=== PATIENT | male | born 1995 | race Asian ===

== ENCOUNTER → 2022-12-11 14:14 | Outpatient (BNVA) | payer OTHER, SELFPAY | PROVIDERS: PCP Physician Assistant; Visit Provider Internal Medicine Endocrinology, Diabetes & Metabolism | DX: E11.65 Type 2 diabetes mellitus with hyperglycemia (principal); Z79.4 Long term (current) use of insulin | CPT/HCPCS: 82947 ==

== ENCOUNTER 2023-07-21 08:57 | Outpatient (AMB) | payer OTHER, SELFPAY ==
--- NOTE | 2023-07-21 08:57 | MHC.OFFVIS ---
Intake Vital Signs 07/21/23 08:58 Height 5 ft 8 in Weight 263 lb 10.766 oz BMI 40.1 BP 154/100 H Blood Pressure Location Lt brachial Position Sitting Pulse 70 Pulse Source Pulse Oximeter Intake Visit Reasons: DM Intake Note: Patient presents today to follow up on Type 2 Diabetes Mellitus. Patient receives DME supplies through: Last Diabetic Eye exam: 06/21/2023 Last Podiatry Visit: None Random Glucose: 217mg/dl HgA1C: 10.9% Assistant Import Manager Required: No Accompanied by: Self / Same As Patient Allergies azithromycin [From Zithromax] Allergy (Unknown, Verified 07/21/23 09:03) Unknown cefaclor [From Ceclor] Allergy (Unknown, Verified 07/21/23 09:03) Rash cefprozil [From Cefzil] Allergy (Unknown, Verified 07/21/23 09:03) Hives enviormental Allergy (Unknown, Uncoded 12/11/22 14:20) Unknown HPI HPI Comments History of Present Illness Details 28 YO M who is seen in consultation for T2DM at the request of PCP. Patient had episode of pancreatitis due to elevated triglycerides Initially diagnosed with T2DM in 2019 . Was initially started on treatment with metformin . Current regimen Lantus 60 units Humalog 10-25 units premeals on a scale . 81-150 15 unis 151-200 20 units Per the CGM Jesi CGMS is active 71 % of time . GMi is 8.5 Avg glucose is 218 . The patient's blood sugars were in target 8% of the time, above target 71% of the time, and below target 0% of the time. Pattern shows persistent elevated glucoses overnight but spikes in blood sugar after lunch and after dinner with a greater degree and spike after dinner Not Reports low sugars . Family history of T2DM in pt adopted . Has eyes checked yearly, last eye exam 06/21/2023, denies retinopathy. Denies neuropathy, l not sees podiatry. Denies nephropathy,on GARRET/ARB. Has high trig , on fibrate . . Denies CAD. Had diabetes education in distant past . [facility] Medical History (Updated 12/11/22 @ 14:28 by Demond Maharaj MD) Uncontrolled diabetes mellitus with hyperglycemia, with long-term current use of insulin Surgical History Hx of wisdom tooth extraction Hx of tonsillectomy Family History Mother No problems noted. Father Unknown family medical history Other Adopted Social History Alcohol intake: current Alcohol intake frequency: does not drink Patient Tobacco Use Status: Never used Tobacco Physical Exam Vital Signs: Last Vital Signs Pulse 70 07/21/23 08:58 BP 154/100 H 07/21/23 08:58 BMI result Body Mass Index 40.1 Absence of Cushingoid features. Absence of acromegalic features. Neck exam reveals nl size thyroid about 15 gms. No thyroid nodules palpable. No carotid bruits present. Lungs CTA. Heart S1 S2, Reg R/R. No M/R/ G. Skin exam reveals absence of vitiligo or acanthosis nigricans. Abdominal exam reveals Soft NT/ND with NA BS. No organomegaly present. Neck Other: . Extrem Other: Visual exam of foot performed. No ulcerations or open lesions. No onchomycosis, no callouses.Pulses 2 + distally Sensation intact to monofilament exam. Vibratory sensation sensed is intact with 128 Hz tuning fork Results AMB Hemoglobin A1c AMB Hemoglobin A1c 10.9 % Last Edit by Isabella Rizo on 07/21/23 09:33 Results Reviewed Results Reviewed: 07/21/23 09:11 Glucose, Whole Blood Routine Laboratory Last Values Glucose (Clinic) 217 mg/dL (60-115) H 07/21/23 09:11 Hgb A1c (Clinic) 10.9 % (4.0-6.0) H 07/21/23 09:15 Assessment & Plan Assessment & Plan (1) Uncontrolled diabetes mellitus with hyperglycemia, with long-term current use of insulin: Code(s): E11.65 - Type 2 diabetes mellitus with hyperglycemia; Z79.4 - residential (current) use of insulin Plan: This 28-year-old white male with a history of pancreatitis to elevated triglycerides and diabetes 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 He is currently being treated with basal-bolus insulin with poor glycemic control and no known microvascular or macrovascular complications. Plan is increase Lantus 70 units and increase the Humalog. by 5 units prior to lunch and dinner Could consider use of an insulin pump in this case as G LP 1 and SGLT 2 inhibitor are relatively contraindicated with a history of pancreatitis and DKA. 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
[2023-07-21 08:58] VITALS: BP 154/100; PULSE 70; BMI 40.1
[2023-07-21 09:16] LABS: Glucose, Whole Blood 217 mg/dL (60-115)
== END 2023-07-21 09:24 | disposition home or self-care (01) ==
PROVIDERS: PCP Physician Assistant; Visit Provider Internal Medicine Endocrinology, Diabetes & Metabolism
DX: E11.65 Type 2 diabetes mellitus with hyperglycemia (principal); Z79.4 Long term (current) use of insulin
CPT/HCPCS: 99214

== ENCOUNTER → 2023-07-21 08:57 | Outpatient (BNVA) | payer OTHER, SELFPAY | PROVIDERS: PCP Physician Assistant; Visit Provider Internal Medicine Endocrinology, Diabetes & Metabolism | DX: E11.65 Type 2 diabetes mellitus with hyperglycemia (principal); Z79.4 Long term (current) use of insulin | CPT/HCPCS: 82947; 83036 ==

== ENCOUNTER 2024-04-18 11:11 | Outpatient (AMB) | payer OTHER, SELFPAY ==
[2024-04-18 11:24] VITALS: BP 160/100; PULSE 99; BMI 41.2
--- NOTE | 2024-04-18 11:24 | A.OFFVIS_ITS ---
Vital Signs 04/18/24 11:24 Height 5 ft 8 in Weight 270 lb 11.642 oz BMI 41.2 BP 160/100 H Blood Pressure Location Lt brachial Position Sitting Pulse 99 Pulse Source Pulse Oximeter Intake Visit Reasons: f/u Type 2DM-lvm Intake Note: Patient present today to follow up on Type 2 Diabetes Mellitus. Last Diabetic Eye exam: 11/2023 Last Podiatry Visit: Doesn't have one Random Glucose: 136 mg/dl HgA1C: 12.5% Mule Developer Required: No Accompanied by: Self / Same As Patient Allergies azithromycin [From Zithromax] Allergy (Unknown, Verified 04/18/24 11:29) Unknown cefaclor [From Ceclor] Allergy (Unknown, Verified 04/18/24 11:29) Rash cefprozil [From Cefzil] Allergy (Unknown, Verified 04/18/24 11:29) Hives enviormental Allergy (Unknown, Uncoded 04/18/24 11:29) Unknown HPI Comments Details: 28 YO M who is seen in consultation for T2DM at the request of PCP. Patient had episode of pancreatitis due to elevated triglycerides Initially diagnosed with T2DM in 2019 . Was initially started on treatment with metformin . Current regimen Lantus 70 units Humalog 15-30 units premeals on a scale . 81-150 20 unis 151-200 25 units Per the CGM -could not download mauricio but average of 280, 2 % in range and 32% high and 66% very hyperglycmic Not Reports low sugars . Family history of T2DM in pt adopted . Has eyes checked yearly, last eye exam 11/2023 , denies retinopathy. Denies neuropathy, l not sees podiatry. Denies nephropathy,on GARRET/ARB. Has high trig , on fibrate . . Denies CAD. Had diabetes education in distant past . [facility] Medical History (Updated 12/11/22 @ 14:28 by Demond Maharaj MD) Uncontrolled diabetes mellitus with hyperglycemia, with long-term current use of insulin Surgical History Hx of wisdom tooth extraction Hx of tonsillectomy Family History Mother No problems noted. Father Unknown family medical history Other Adopted Social History Alcohol intake: current Alcohol intake frequency: does not drink Patient Tobacco Use Status: Never used Tobacco Physical Exam Vital Signs: Last Vital Signs Pulse 99 04/18/24 11:24 BP 160/100 H 04/18/24 11:24 BMI result Body Mass Index 41.2 Absence of Cushingoid features. Absence of acromegalic features. Neck exam reveals nl size thyroid about 15 gms. No thyroid nodules palpable. No carotid bruits present. Lungs CTA. Heart S1 S2, Reg R/R. No M/R/ G. Skin exam reveals absence of vitiligo or acanthosis nigricans. Abdominal exam reveals Soft NT/ND with NA BS. No organomegaly present. Neck Other: . Extrem Other: Visual exam of foot performed. No ulcerations or open lesions. No onchomycosis, no callouses.Pulses 2 + distally Sensation intact to monofilament exam. Vibratory sensation sensed is intact with 128 Hz tuning fork Results AMB Hemoglobin A1c AMB Hemoglobin A1c 12.5 % Last Edit by BECKI Martin on 04/18/24 11:40 Results Reviewed Results Reviewed: Laboratory Last Values Glucose (Clinic) 136 mg/dL (60-115) H 04/18/24 11:30 Assessment & Plan Assessment & Plan (1) Uncontrolled diabetes mellitus with hyperglycemia, with long-term current use of insulin: Code(s): E11.65 - Type 2 diabetes mellitus with hyperglycemia; Z79.4 - intermediate card tender (current) use of insulin Category: Medical Plan: This 28-year-old white male with a history of pancreatitis to elevated triglycerides and diabetes 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 He is currently being treated with basal-bolus insulin with poor glycemic control and no known microvascular or macrovascular complications. Plan is increase Lantus 80 units and increase the Humalog. by 5 units prior to lunch and dinner Could consider use of an insulin pump in this case as G LP 1 and SGLT 2 inhibitor are relatively contraindicated with a history of pancreatitis and DKA. We talked about potentially using a tandem pump which may have a larger reservoir and possibly could use U-500 insulin in the future either by injection or via pump. Needs to Make appointments for patient to see the extension educator and engineering specialist. We will also check lipid profile microalbumin to creatinine ratio Orders: Orders Microalbumin, Random (w Creat) Today E11.65 - Type 2 diabetes mellitus with hyperglycemia, Z79.4 - intermediate card tender (current) use of insulin Lipid Panel Today E11.65 - Type 2 diabetes mellitus with hyperglycemia, Z79.4 - intermediate card tender (current) use of insulin AMB Hemoglobin A1c Today E11.65 - Type 2 diabetes mellitus with hyperglycemia, Z13.9 - Encounter for screening, unspecified, Z79.4 - intermediate card tender (current) use of insulin Referrals Diabetes Education Referral E11.65 - Type 2 diabetes mellitus with hyperglycemia, Z79.4 - detention (current) use of insulin Nutrition/Dietitian Referral E11.65 - Type 2 diabetes mellitus with hyperglycemia, Z79.4 - intermediate card tender (current) use of insulin Coding Level of Care Code Est Pt Level 4 (62247) Diagnoses Uncontrolled diabetes mellitus with hyperglycemia, with long-term current use of insulin E11.65; Z79.4
[2024-04-18 11:34] LABS: Glucose, Whole Blood 136 mg/dL (60-115)
== END 2024-04-18 11:54 | disposition home or self-care (01) ==
PROVIDERS: PCP Physician Assistant; Visit Provider Internal Medicine Endocrinology, Diabetes & Metabolism
DX: Z13.9 Encounter for screening, unspecified (principal); E11.65 Type 2 diabetes mellitus with hyperglycemia; Z79.4 Long term (current) use of insulin
CPT/HCPCS: 99214

== ENCOUNTER → 2024-04-18 11:11 | Outpatient (BNVA) | payer OTHER, SELFPAY | PROVIDERS: PCP Physician Assistant; Visit Provider Internal Medicine Endocrinology, Diabetes & Metabolism | DX: E11.65 Type 2 diabetes mellitus with hyperglycemia (principal); Z79.4 Long term (current) use of insulin | CPT/HCPCS: 82947; 83036 ==

== ENCOUNTER 2024-05-02 08:19 | Outpatient (AMB) | payer OTHER, SELFPAY ==
--- NOTE | 2024-05-02 09:12 | A.OFFVIS_ITS ---
Intake Intake Visit Reasons: T2DM Boarding Specialist Required: No Accompanied by: Self / Same As Patient Allergies azithromycin [From Zithromax] Allergy (Unknown, Verified 04/18/24 11:29) Unknown cefaclor [From Ceclor] Allergy (Unknown, Verified 04/18/24 11:29) Rash cefprozil [From Cefzil] Allergy (Unknown, Verified 04/18/24 11:29) Hives enviormental Allergy (Unknown, Uncoded 04/18/24 11:29) Unknown HPI Comprehensive Diabetes Asmnt Most Recent Diabetes Results: No Data to Display [facility] Medical History (Updated 12/11/22 @ 14:28 by Demond Maharaj MD) Uncontrolled diabetes mellitus with hyperglycemia, with long-term current use of insulin Surgical History Hx of wisdom tooth extraction Hx of tonsillectomy Family History Mother No problems noted. Father Unknown family medical history Other Adopted Social History Alcohol intake: current Alcohol intake frequency: does not drink Patient Tobacco Use Status: Never used Tobacco Assessment & Plan Assessment & Plan (1) Uncontrolled diabetes mellitus with hyperglycemia, with long-term current use of insulin: Code(s): E11.65 - Type 2 diabetes mellitus with hyperglycemia; Z79.4 - halfway (current) use of insulin Plan: Pump Assessment: Type of DM: Type 2 Dx at age: [age] years old Previous DKA: Yes Current Insulin Rx: MDI Patient takes insulin as prescribed: Yes Patient? checks BG patient uses Jesi 3, patient has not have an active sensor for over wee Patient? reports glycemic control as: Poor Most recent Hgb A1C: 12.5% Frequency of low BG: Rarely Low BG treatment: Fruit juice Frequency of high BG: Daily Does patient check Ketones? Patient reports he has ketone strips at home, but he does not generally test for ketones. Reviewed with patient the rules want to test for ketones. Asked patient to check to make sure his ketone strips have not Has pt been on a pump in the past? No Reviewed insulin pump basics today with Patient. Explained pros and cons of insulin pumps. Showed pt various pumps, infusion sets, and cgms currently available. Reviewed need to wear pump 24/ and need to change infusion set every 3 days. Also stressed importance of frequent BG checks, 4x daily minimum or use pump that is integrated with CGM.? TDD: 120 units Calculated insulin to carb ratio of 1-4 Correction factor 1-12 Patient's current target rate 150 mg/dL Bolus calc elsa downloaded on patient's phone, demonstrated with elsa how to calculate correction doses and mealtime doses Patient demonstrated motivation for continued insulin pump education and understands the need to complete education prior to starting insulin pump for best outcome. Will follow up for continued education. Next visit will include review of Advanced Carb Counting. Portions of this note were created using voice recognition software, please excuse any words or phrases that may have been misinterpreted. Patient Instructions: DIABETES PROBLEMS HOMECARE INSTRUCTIONS? for High Blood Sugar and When to Test for Ketones Hyperglycemia is the technical term for high blood glucose (blood sugar). High blood sugar happens when the body has too little insulin or when the body can't use insulin properly. What causes hyperglycemia? A number of things can cause hyperglycemia: * If you have type 1, you may not have given yourself enough insulin. ? If you have type 2, your body may have enough insulin, but it is not as effective as it should be. * You ate more than planned or exercised less than planned. * You have stress from an illness, such as a cold or flu. * You have other stress, such as family conflicts or school or dating problems. How to lower your blood sugar level. ? Take medications as directed by physician. ? Drink extra water or noncaffeinated, nonsugared drinks to prevented hydration. ? Exercise if you are not sick However, if your blood sugar is above 250 mg/dl, check your urine for ketones. If you have ketones, do not exercise Exercising when ketones are present may make your blood sugar level go even higher. You'll need to work with your doctor to find the safest way for you to lower your blood sugar level. Regularly check blood sugar or urine for sugar and acetone during illness. Diabetic ketoacidosis (DKA) Is serious condition that can lead to diabetic coma (passing out for a long time) or even . When your cells don't get the glucose they need for energy, your body begins to burn fat for energy, which produces ketones. Ketones are chemicals that the body creates when it breaks down fat to use for energy. The body does this when it doesn?t have enough insulin to use glucose, the body?s normal source of energy. When ketones build up in the blood, they make it more acidic. They are a warning sign that your diabetes is out of control or that you are getting sick. Symptoms of Diabetic Ketoacidosis (DKA) ? DKA usually develops slowly. But when vomiting occurs, this life- threatening condition can develop in a few hours. Early symptoms include the following: ? Thirst or a very dry mouth ? Frequent urination ? High blood glucose (blood sugar) levels ? High levels of ketones in the urine ? Then, other symptoms appear: ? Constantly feeling tired ? Dry or flushed skin ? Nausea, vomiting, or abdominal pain ? (Vomiting can be caused by many illnesses, not just ketoacidosis. If vomiting continues for more than 2 hours, contact your health care provider.) ? Difficulty breathing ? Fruity odor on breath ? A hard time paying attention, or confusion When should you test for ketones? It is advisable to check for ketones under the following conditions when: Your blood glucose is higher than 250mg/dl. Feeling nauseated, throwing up, or have pains in your abdominal region. Have a cold or flu. Have general body fatigue. Feel thirsty or have a very dry mouth. Have flushed skin. Have a fruity breath or a hard time breathing. You feel perplexed or in fog. How to Test Urine for Ketones You can detect ketones with a simple urine test using a test strip, similar to a blood testing strip. Ask your health care provider when and how you should test for ketones. Many experts advise to check your urine for ketones when your blood glucose is more than 250 mg/dl. When you are ill (when you have a cold or the flu, for example), check for ketones every 4 to 6 hours. And check every 4 to 6 hours when your blood sugar is more than 250 mg/dl. Also, check for ketones when you have any symptoms of DKA. How to lower your blood sugar level. ? Take medications as directed by physician. ? Drink extra water or noncaffeinated, nonsugared drinks to prevented hydration. ? Exercise if you are not sick However, if your blood sugar is above 250 mg/dl, check your urine for ketones. If you have ketones, do not exercise Exercising when ketones are present may make your blood sugar level go even higher. You'll need to work with your doctor to find the safest way for you to lower your blood sugar level. Regularly check blood sugar or urine for sugar and acetone during illness Coding Level of Care Code Est Pt Level 1 (51897) Diagnoses Uncontrolled diabetes mellitus with hyperglycemia, with long-term current use of insulin E11.65; Z79.4
== END 2024-05-02 09:15 | disposition home or self-care (01) ==
PROVIDERS: PCP Physician Assistant; Visit Provider Registered Nurse Diabetes Educator
DX: E11.65 Type 2 diabetes mellitus with hyperglycemia (principal); Z79.4 Long term (current) use of insulin

== ENCOUNTER → 2024-05-02 08:19 | Outpatient (BNVA) | payer OTHER, SELFPAY | PROVIDERS: PCP Physician Assistant; Visit Provider Registered Nurse Diabetes Educator | DX: E11.65 Type 2 diabetes mellitus with hyperglycemia (principal); Z79.4 Long term (current) use of insulin | CPT/HCPCS: 99211 ==

== ENCOUNTER 2024-06-29 07:55 | Outpatient (AMB) | payer OTHER, SELFPAY ==
--- NOTE | 2024-06-29 08:37 | MHC.AMDMED ---
Intake Intake Visit Reasons: 60 Carb Counting Dimensional Engineer Required: No Accompanied by: Mother Allergies azithromycin [From Zithromax] Allergy (Unknown, Verified 04/18/24 11:29) Unknown cefaclor [From Ceclor] Allergy (Unknown, Verified 04/18/24 11:29) Rash cefprozil [From Cefzil] Allergy (Unknown, Verified 04/18/24 11:29) Hives enviormental Allergy (Unknown, Uncoded 04/18/24 11:29) Unknown HPI Comprehensive Diabetes Asmnt Most Recent Diabetes Results: No Data to Display [facility] Medical History (Updated 12/11/22 @ 14:28 by Demond Maharaj MD) Uncontrolled diabetes mellitus with hyperglycemia, with long-term current use of insulin Surgical History Hx of wisdom tooth extraction Hx of tonsillectomy Family History Mother No problems noted. Father Unknown family medical history Other Adopted Social History Alcohol intake: current Alcohol intake frequency: does not drink Patient Tobacco Use Status: Never used Tobacco Assessment & Plan Assessment & Plan (1) Uncontrolled diabetes mellitus with hyperglycemia, with long-term current use of insulin: Code(s): E11.65 - Type 2 diabetes mellitus with hyperglycemia; Z79.4 - intermediate school teacher (current) use of insulin Plan: Carb Counting Basic Patient presents for appointment carbohydrate counting education. Reviewed the basic principles of carbohydrate counting.? Insulin to carb ratio, and insulin sensitivity factor calculated based on rule of 450 for insulin to carb ratio, and rule of 1500 for insulin sensitivity factor. Instructed patient on the importance of accurate calculation of the amount of carbs per meal for optimal glucose control Reviewed how to calculate mealtime bolus with insulin to carb ratio Reviewed how to calculate correction dose with insulin sensitivity factor Patient's TDD estimate 120 units Insulin to Carbohydrate ratio: Changed to 1-3 Correction factor: Changed to 1-10 Diet Recall: Breakfast:skips Lunch: sub sandwich Dinner: carb, protion, and vegtables Snacks: Pretzels, chips Patient given healthy plate handout, for resource for carbohydrate counting Encourage patient to fill out food logs, estimating carbohydrates at meals, noting glucose number prior to meal, and how many units of insulin taken prior to meals Pt able to calculated needed insulin based on estimated carbohydrate content Instructed patient that there may need to be adjustment to insulin to carb ratio and sensitivity factor based on blood glucose trends. Reviewed patient's Jesi data Patient's average glucose for the past 2 weeks 252 mg/dL Patient above target 89% At target 11% Below target 0% Programmed bolus calc elsa with new ratio Suggested patient increase Toujeo from 60 units daily to 70 units daily Portions of this note were created using voice recognition software, please excuse any words or phrases that may have been misinterpreted. Patient Instructions: Patient will contact ski lift mechanic when he receives T slim insulin pump and Dexcom G7 sensors Coding Level of Care Code Est Pt Level 1 (33311) Diagnoses Uncontrolled diabetes mellitus with hyperglycemia, with long-term current use of insulin E11.65; Z79.4
== END 2024-06-29 08:45 | disposition home or self-care (01) ==
PROVIDERS: PCP Physician Assistant; Visit Provider Registered Nurse Diabetes Educator
DX: E11.65 Type 2 diabetes mellitus with hyperglycemia (principal); Z79.4 Long term (current) use of insulin

== ENCOUNTER → 2024-06-29 07:55 | Outpatient (BNVA) | payer OTHER, SELFPAY | PROVIDERS: PCP Physician Assistant; Visit Provider Registered Nurse Diabetes Educator | DX: E11.65 Type 2 diabetes mellitus with hyperglycemia (principal); Z79.4 Long term (current) use of insulin | CPT/HCPCS: 99211 ==

== ENCOUNTER 2024-08-15 09:50 | Outpatient (AMB) | payer OTHER, SELFPAY ==
--- NOTE | 2024-08-15 09:54 | MHC.OFFVIS ---
Vital Signs 08/15/24 09:55 Height 5 ft 8 in Weight 273 lb 5.971 oz BMI 41.6 BP 144/82 H Blood Pressure Location Lt brachial Position Sitting Pulse 87 Pulse Source Pulse Oximeter Intake Visit Reasons: [id number] Intake Note: Patient presents today for D2MT follow up visit. 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 Accompanied by: Self / Same As Patient Allergies azithromycin [From Zithromax] Allergy (Unknown, Verified 08/15/24 10:01) Unknown cefaclor [From Ceclor] Allergy (Unknown, Verified 08/15/24 10:01) Rash cefprozil [From Cefzil] Allergy (Unknown, Verified 08/15/24 10:01) Hives enviormental Allergy (Unknown, Uncoded 08/15/24 10:01) Unknown Medication List - Last Reconciled 08/15/24 by Demond Maharaj MD blood-glucose sensor (FiPath Jesi 3 Sensor device) As directed fenofibrate nanocrystallized 145 mg PO DAILY insulin lispro (Humalog KwikPen U-200 Insulin) 10 - 25 units (0.05 - 0.125 mL) subcut TID lisinopril 40 mg PO DAILY losartan 50 mg PO DAILY pen needle, diabetic (BD Sandra 2nd Gen Pen Needle) As directed injects 1 X/day Toujeo Max U-300 SoloStar (insulin glargine U-300 conc) 80 units (0.2667 mL) subcut DAILY NS HPI Comments Details: 29 YO M who is seen in consultation for T2DM at the request of PCP. Patient had episode of pancreatitis due to elevated triglycerides Initially diagnosed with T2DM in 2019 . Was initially started on treatment with metformin . Current regimen Toujeo 80 units Humalog 10-25 units premeals on a scale . 81-150 20 unis 151-200 25 units Per the CGM -Jesi download shows he is using the sensor 73% of the time. Average glucose is 175 with G mi of 7.5% and variability 28.3%. 60% range with 34% hyperglycemia and 6% very hyperglycemic and no hypoglycemia. Patent shows declining blood sugars overnight with elevation of blood sugars post meals Reports rare low sugars . Family history of T2DM in pt adopted . Has eyes checked yearly, last eye exam 07/2024 , denies retinopathy. Denies neuropathy, l not sees podiatry. Denies nephropathy,on GARRET/ARB. Has high trig , on fibrate . . Denies CAD. Had diabetes education in distant past . Recently saw educator is considering going on a insulin pump [facility] Medical History (Updated 12/11/22 @ 14:28 by Demond Maharaj MD) Uncontrolled diabetes mellitus with hyperglycemia, with long-term current use of insulin Surgical History Hx of wisdom tooth extraction Hx of tonsillectomy Family History Mother No problems noted. Father Unknown family medical history Other Adopted Social History Alcohol intake: current Alcohol intake frequency: does not drink Patient Tobacco Use Status: Never used Tobacco Physical Exam Absence of Cushingoid features. Absence of acromegalic features. Neck exam reveals nl size thyroid about 15 gms. No thyroid nodules palpable. No carotid bruits present. Lungs CTA. Heart S1 S2, Reg R/R. No M/R/ G. Skin exam reveals absence of vitiligo or acanthosis nigricans. Abdominal exam reveals Soft NT/ND with NA BS. No organomegaly present. Neck Other: . Extrem Other: Visual exam of foot performed. No ulcerations or open lesions. No onchomycosis, no callouses.Pulses 2 + distally Sensation intact to monofilament exam. 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 He is currently being treated with basal-bolus insulin with fair but improving glycemic control and no known microvascular or macrovascular complications. Plan is increase increase the Humalog. by 5 units prior to lunch and dinner patient should follow-up with the acquisition consultant continue discussing possible use of insulin pump. We will also check lipid profile microalbumin to creatinine ratio told patient goes for these labs Coding Level of Care Code Est Pt Level 4 (12314) Complex EM visit Add On G2211 Diagnoses Uncontrolled diabetes mellitus with hyperglycemia, with long-term current use of insulin E11.65; Z79.4
[2024-08-15 09:55] VITALS: BP 144/82; PULSE 87; BMI 41.6
[2024-08-15 10:09] LABS: Glucose, Whole Blood 95 mg/dL (60-115)
== END 2024-08-15 10:19 | disposition home or self-care (01) ==
PROVIDERS: PCP Physician Assistant; Visit Provider Internal Medicine Endocrinology, Diabetes & Metabolism
DX: Z13.9 Encounter for screening, unspecified (principal); E11.65 Type 2 diabetes mellitus with hyperglycemia; Z79.4 Long term (current) use of insulin
CPT/HCPCS: 99214; G2211

== ENCOUNTER → 2024-08-15 09:50 | Outpatient (BNVA) | payer OTHER, SELFPAY | PROVIDERS: PCP Physician Assistant; Visit Provider Internal Medicine Endocrinology, Diabetes & Metabolism | DX: E11.65 Type 2 diabetes mellitus with hyperglycemia (principal); Z79.4 Long term (current) use of insulin | CPT/HCPCS: 82947; 83036 ==

== ENCOUNTER 2024-11-13 10:53 | Outpatient (AMB) | payer OTHER, SELFPAY ==
--- NOTE | 2024-11-13 10:58 | MHC.OFFVIS ---
Vital Signs 11/13/24 11:01 Height 5 ft 8 in Weight 273 lb 9.498 oz BMI 41.6 BP 166/110 H Blood Pressure Location Lt brachial Position Sitting Pulse 105 H Pulse Source Pulse Oximeter Intake Visit Reasons: T2DM Intake Note: Patient present today to follow up on Type 2 Diabetes Mellitus. Last Diabetic Eye exam: Has yearly exam Last Podiatry Visit: Has not see a Rn New Graduate more than 2 years. 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 Patient had episode of pancreatitis due to elevated triglycerides Initially diagnosed with T2DM in 2019 . Was initially started on treatment with metformin . Current regimen Toujeo 60 units Humalog 10-25 units premeals on a scale . 81-150 20 unis 151-200 25 units . Was out of Humalog for few days Per the CGM -Jesi download shows he is using the sensor 79% of the time. Average glucose is 239with G mi of 9% and variability 26.1%. 21% range with 40% hyperglycemia and 39% very hyperglycemic and no hypoglycemia. Patent shows declining blood sugars overnight with elevation of blood sugars post meals Reports rare low sugars . Family history of T2DM in pt adopted . Has eyes checked yearly, last eye exam 07/2024 , denies retinopathy. Denies neuropathy, l not sees podiatry. Denies nephropathy,on GARRET/ARB. Has high trig , on fibrate . . Denies CAD. Had diabetes education i . Recently saw educator is considering going on a insulin pump T-Slim pump [facility] Medical History (Updated 12/11/22 @ 14:28 by Demond Maharaj MD) Uncontrolled diabetes mellitus with hyperglycemia, with long-term current use of insulin Surgical History Hx of wisdom tooth extraction Hx of tonsillectomy Family History Mother No problems noted. Father Unknown family medical history Other Adopted Social History Alcohol intake: current Alcohol intake frequency: does not drink Patient Tobacco Use Status: Never used Tobacco Physical Exam Vital Signs: BMI result Body Mass Index 41.6 Absence of Cushingoid features. Absence of acromegalic features. Neck exam reveals nl size thyroid about 15 gms. No thyroid nodules palpable. No carotid bruits present. Lungs CTA. Heart S1 S2, Reg R/R. No M/R/ G. Skin exam reveals absence of vitiligo or acanthosis nigricans. Abdominal exam reveals Soft NT/ND with NA BS. No organomegaly present. Neck Other: . Extrem Other: Visual exam of foot performed. No ulcerations or open lesions. No onchomycosis, no callouses.Pulses 2 + distally Sensation intact to monofilament exam. 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 He is currently being treated with basal-bolus insulin with poor deteriorate glycemic control and no known microvascular or macrovascular complications. Plan is increase increase the Humalog. by additional 5 units prior to lunch and dinner patient should follow-up with the special education paraeducator continue discussing possible use of insulin pump. We will also check lipid profile and microalbumin to creatinine ratio told patient goes for these labs. We will have him follow up with Valeria Malloy NP in 3-4 wks Coding Level of Care Code Est Pt Level 4 (56524) Complex EM visit Add On G2211 Diagnoses Uncontrolled diabetes mellitus with hyperglycemia, with long-term current use of insulin E11.65; Z79.4
[2024-11-13 11:01] VITALS: BP 166/110; PULSE 105; BMI 41.6
[2024-11-13 11:11] LABS: Glucose, Whole Blood 209 mg/dL (60-115)
== END 2024-11-13 11:20 | disposition home or self-care (01) ==
PROVIDERS: PCP Physician Assistant; Visit Provider Internal Medicine Endocrinology, Diabetes & Metabolism
DX: E11.65 Type 2 diabetes mellitus with hyperglycemia (principal); Z79.4 Long term (current) use of insulin
CPT/HCPCS: 99214; G2211

== ENCOUNTER → 2024-11-13 10:53 | Outpatient (BNVA) | payer OTHER, SELFPAY | PROVIDERS: PCP Physician Assistant; Visit Provider Internal Medicine Endocrinology, Diabetes & Metabolism | DX: E11.65 Type 2 diabetes mellitus with hyperglycemia (principal); Z79.4 Long term (current) use of insulin | CPT/HCPCS: 82947 ==

== ENCOUNTER 2024-12-19 08:50 | Outpatient (AMB) | payer OTHER, SELFPAY ==
--- NOTE | 2024-12-19 08:03 | MHC.OFFVIS ---
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 Accompanied by: Self / Same As Patient Allergies azithromycin [From Zithromax] Allergy (Unknown, Verified 12/19/24 09:00) Unknown cefaclor [From Ceclor] Allergy (Unknown, Verified 12/19/24 09:00) Rash cefprozil [From Cefzil] Allergy (Unknown, Verified 12/19/24 09:00) Hives enviormental Allergy (Unknown, Uncoded 12/19/24 09:00) Unknown Medication List - Last Reconciled 12/19/24 by Valeria Elena NP blood-glucose sensor (FreeStyle Mauricio 3 Sensor device) As directed fenofibrate nanocrystallized 145 mg PO DAILY insulin lispro (Humalog KwikPen U-200 Insulin) 10 - 25 units (0.05 - 0.125 mL) subcut TID losartan 50 mg PO DAILY pen needle, diabetic (BD Sandra 2nd Gen Pen Needle) As directed injects 1 X/day Toujeo Max U-300 SoloStar (insulin glargine U-300 conc) 80 units (0.2667 mL) subcut DAILY NS HPI Comments Details: 29 YO M who is seen in f/u for T2DM. Patient had episode of pancreatitis due to elevated triglycerides. He was last seen by Dr. Maharaj 6 weeks ago at which time his Humalog was increased by 5 units per dose. Hemoglobin A1c 12/19/2024 %, 08/15/2024 10.1 down from 12.5. C-peptide 1.5 2021 Initially diagnosed with T2DM in 2019 . Was initially started on treatment with metformin . Current regimen Toujeo 60 units Humalog 1:4 carb ratio correction 1:14 using phone elsa (generally follows car ratio/correction factor) 81-150 10 units 151-200 15 units 201-250 20 units over 250 20 units mauricio average glucose: 261 14 day continuous glucose monitor report reviewed Glucose Managment indicator 9.6 % Days with CGM data [ ] % TIme in ranges: Fifty-seven % very high (above 250) 36 % high ?(181-250) 7 % in range ?(70-180] 0 % low (69-55) 0 % ?very low (below 54) 21.8 Standard Deviation Interpretation numbers running throughout the 24 hour. High Interpretation [ ] Reports rare low sugars . Family history of T2DM in pt adopted . Denies retinopathy: Has eyes checked yearly, last eye exam 09/2024 Denies neuropathy, no numbness, tingling, pain or cramping in the lower extremities, does not see podiatry. No nephropathy,on ARB last labs in chart 2021 EGFR 135 no microalbumin Has high trig, on fenofibrate Denies CAD. Has had diabetes educationm. Recently saw educator 2023, considering going on a insulin pump T-Slim pump [facility] Medical History (Updated 12/19/24 @ 11:50 by Valeria Elena NP) Hypertension Uncontrolled diabetes mellitus with hyperglycemia, with long-term current use of insulin Surgical History Hx of wisdom tooth extraction Hx of tonsillectomy Family History Mother No problems noted. Father Unknown family medical history Other Adopted Social History Alcohol intake: current Alcohol intake frequency: does not drink Patient Tobacco Use Status: Never used Tobacco Physical Exam Vital Signs: Last Vital Signs Pulse 86 12/19/24 09:16 BP 180/100 H 12/19/24 09:16 BMI result Body Mass Index 42.2 Const Other: Absence of Cushingoid features. Absence of acromegalic features. Neck exam reveals nl size thyroid about 15 gms. No thyroid nodules palpable. Heart S1 S2, Reg R/R. No M/R G. Skin exam reveals absence of vitiligo or acanthosis nigricans. Visual exam of foot performed. No ulcerations or open lesions. No inter digit maceration or fissuring. No onychomycosis, no callouses. Sensation intact to monofilament exam. Vibratory sensation is normal with 128 Hz tuning fork. good cap refill Results AMB Hemoglobin A1c AMB Hemoglobin A1c 8.7 % Last Edit by BECKI Ramos on 12/19/24 09:13 Results Reviewed Results Reviewed: Laboratory Last Values Glucose (Clinic) 259 mg/dL (60-115) H 12/19/24 09:04 Hgb A1c (Clinic) 8.7 % (4.0-6.0) H 12/19/24 09:06 Assessment & Plan Assessment & Plan (1) Uncontrolled diabetes mellitus with hyperglycemia, with long-term current use of insulin: Code(s): E11.65 - Type 2 diabetes mellitus with hyperglycemia; Z79.4 - manager terminal (current) use of insulin Category: Medical Plan: This 29-year-old white male with a history of pancreatitis due to elevated triglycerides and diabetes 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 He is currently being treated with basal-bolus insulin with poor glycemic control and no known microvascular or macrovascular complications. Increase Toujeo to 64 units change insulin to carb to 1:3 correction factor 1:12 Pre pump appointment with health educator. He is interested in either more be or tandem using the Veritractstyle Mauricio 2+ as Dexcom has too high the co-pay for him. Needs additional pre pump session with health educator and would recommend he also see vocational director. Patient would do better on insulin pump if he had some pre set meals entered. The patient had an opportunity to ask questions regarding treatment plan. The patient expressed understanding and agreement with the above treatment plan. The patient is aware they should contact our office by phone for worsening glucose readings or for any low blood sugars which may warrant a change in diabetes medication. Compliance is encouraged with medications and any followup testing/consults which may have been ordered. (2) Hypertension: Code(s): I10 - Essential (primary) hypertension Category: Medical Plan: takes antihypertensive regularly add hctz and recheck labs in 3 weeks bp check next visit. Orders: Orders AMB Hemoglobin A1c Today E11.65 - Type 2 diabetes mellitus with hyperglycemia, Z79.4 - FDC (current) use of insulin Basic Metabolic Panel Today E11.65 - Type 2 diabetes mellitus with hyperglycemia, Z79.4 - FDC (current) use of insulin Thyroid Stimulating Hormone Today E11.65 - Type 2 diabetes mellitus with hyperglycemia, Z79.4 - manager terminal (current) use of insulin Free T4 (Free Thyroxine) Today E11.65 - Type 2 diabetes mellitus with hyperglycemia, Z79.4 - manager terminal (current) use of insulin Referrals Dry Wall Installer Nutrition Referral E11.65 - Type 2 diabetes mellitus with hyperglycemia, Z79.4 - FDC (current) use of insulin Medications: New hydrochlorothiazide 12.5 mg PO DAILY 30 days 30 tabs 11RF Patient Instructions: Take 15 carb carbohydrate grams to treat a low sugar (3-4 glucose tablets, half a glass of juice or 15 carbohydrate grams of soft candy such as gummie snacks). Recheck your sugar in 15 minutes and re-treat again with 15 carbohydrate grams if low or still with symptoms. Do not drive a car or operate machinery if you do not know what your blood sugar is, if it is low or in excess of 300. The patient was counseled to achieve a target A1C of 7% (154 avg). Fasting blood sugars should be 90-130 in the morning and less than 180 two hours after meals. Reviewed the relationship between poor diabetic control and the development of complications. Check your feet daily looking for any signs of infection, drainage, redness, ulceration and seek medical attention if this occurs. Break in shoes gradually and do not wear open-toed shoes or walk stocking footed or barefooted. Coding Level of Care Code Est Pt Level 4 (48662) Complex EM visit Add On G2211 Diagnoses Uncontrolled diabetes mellitus with hyperglycemia, with long-term current use of insulin E11.65; Z79.4 Hypertension I10 Time Spent (min) 30 Comment Time spent reviewing labs/provider notes, glucose,sensor reports, face to face, chart doc
[2024-12-19 08:57] VITALS: BP 140/100; PULSE 114; BMI 42.2
[2024-12-19 09:07] LABS: Glucose, Whole Blood 259 mg/dL (60-115)
[2024-12-19 09:16] VITALS: BP 180/100; PULSE 86
== END 2024-12-19 09:27 | disposition home or self-care (01) ==
PROVIDERS: PCP Physician Assistant; Visit Provider Nurse Practitioner Adult Health
DX: E11.65 Type 2 diabetes mellitus with hyperglycemia (principal); Z79.4 Long term (current) use of insulin; I10 Essential (primary) hypertension
CPT/HCPCS: 99214; G2211

== ENCOUNTER → 2024-12-19 08:50 | Outpatient (BNVA) | payer OTHER, SELFPAY | PROVIDERS: PCP Physician Assistant; Visit Provider Nurse Practitioner Adult Health | DX: E11.65 Type 2 diabetes mellitus with hyperglycemia (principal); Z79.4 Long term (current) use of insulin | CPT/HCPCS: 82947; 83036 ==

== ENCOUNTER 2024-12-26 07:00 | Outpatient (AMB) | payer OTHER, SELFPAY ==
--- NOTE | 2024-12-26 07:19 | MHC.AMDMED ---
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 Accompanied by: Self / Same As Patient Allergies azithromycin [From Zithromax] Allergy (Unknown, Verified 12/19/24 09:00) Unknown cefaclor [From Ceclor] Allergy (Unknown, Verified 12/19/24 09:00) Rash cefprozil [From Cefzil] Allergy (Unknown, Verified 12/19/24 09:00) Hives enviormental Allergy (Unknown, Uncoded 12/19/24 09:00) Unknown HPI Comprehensive Diabetes Asmnt Most Recent Diabetes Results: No Data to Display [facility] Medical History (Updated 12/19/24 @ 11:50 by Valeria Elena NP) Hypertension Uncontrolled diabetes mellitus with hyperglycemia, with long-term current use of insulin Surgical History Hx of wisdom tooth extraction Hx of tonsillectomy Family History Mother No problems noted. Father Unknown family medical history Other Adopted Social History Alcohol intake: current Alcohol intake frequency: does not drink Patient Tobacco Use Status: Never used Tobacco Assessment & Plan Assessment & Plan (1) Uncontrolled diabetes mellitus with hyperglycemia, with long-term current use of insulin: Code(s): E11.65 - Type 2 diabetes mellitus with hyperglycemia; Z79.4 - alf (current) use of insulin Plan: Personal Continuous Glucose Monitor: Patients CGM information reviewed, Pt uses Jesi 3+ with phone Sensor data: Hypoglycemia: ? 0% Hyperglycemia:? 83% Time in Range:? 17% Average glucose for the last 2 weeks? 237 mg/dL At last visit with BULB TESTER Toujeo was increased from 60 units to 64 units I:CHO was changed to 1:3 CF was changed to 1:12, patient has patient has continue to use old settings and did not increase Toujeo At today's visit patient updated bolus calc elsa with new settings, and agree to increase Toujeo to 64 units Discussed patient the difference between Jesi 2+ and Dexcom G7 Patient is interested in using the Tandem Mobi, he will need to change reservoir every 48 hours as opposed to every 72 hours due to TDD of 100 units Patient able to insert sensor independently at home without issue.? Portions of this note were created using voice recognition software, please excuse any words or phrases that may have been misinterpreted. Patient Instructions: When you receive pump and pump supplies called to set up pump training appt Coding Level of Care Code Est Pt Level 1 (95876) Diagnoses Uncontrolled diabetes mellitus with hyperglycemia, with long-term current use of insulin E11.65; Z79.4
== END 2024-12-26 07:23 | disposition home or self-care (01) ==
PROVIDERS: PCP Physician Assistant; Visit Provider Registered Nurse Diabetes Educator
DX: E11.65 Type 2 diabetes mellitus with hyperglycemia (principal); Z79.4 Long term (current) use of insulin

== ENCOUNTER → 2024-12-26 07:00 | Outpatient (BNVA) | payer OTHER, SELFPAY | PROVIDERS: PCP Physician Assistant; Visit Provider Registered Nurse Diabetes Educator | DX: E11.65 Type 2 diabetes mellitus with hyperglycemia (principal); Z79.4 Long term (current) use of insulin | CPT/HCPCS: 99211 ==

== ENCOUNTER 2025-04-16 07:53 | Outpatient (AMB) | payer OTHER, SELFPAY ==
--- NOTE | 2025-04-16 09:48 | MHC.AMDMED ---
Intake Intake Visit Reasons: Pump Assistive Technology Specialist Required: No Accompanied by: Mother Allergies azithromycin [From Zithromax] Allergy (Unknown, Verified 12/19/24 09:00) Unknown cefaclor [From Ceclor] Allergy (Unknown, Verified 12/19/24 09:00) Rash cefprozil [From Cefzil] Allergy (Unknown, Verified 12/19/24 09:00) Hives enviormental Allergy (Unknown, Uncoded 12/19/24 09:00) Unknown HPI Comprehensive Diabetes Asmnt Most Recent Diabetes Results: No Data to Display [facility] Medical History (Updated 12/19/24 @ 11:50 by Valeria Elena NP) Hypertension Uncontrolled diabetes mellitus with hyperglycemia, with long-term current use of insulin Surgical History Hx of wisdom tooth extraction Hx of tonsillectomy Family History Mother No problems noted. Father Unknown family medical history Other Adopted Social History Alcohol intake: current Alcohol intake frequency: does not drink Patient Tobacco Use Status: Never used Tobacco Assessment & Plan Assessment & Plan (1) Uncontrolled diabetes mellitus with hyperglycemia, with long-term current use of insulin: Code(s): E11.65 - Type 2 diabetes mellitus with hyperglycemia; Z79.4 - equipment operator intermodal yard (current) use of insulin Plan: Patient presents for pump training for T- slim pump and [employer] G7 CGM training today. (Pt will transition to Libre2+) Patient will be using Humalog U 200 in T slim insulin pump, message sent to provider to prescribe Humalog U 200 pens to be delivered via insulin The following topics were reviewed today: -Pump therapy basic concepts: Basal/bolus, insulin to carb ratio, correction factor, insulin on board -Device settings: Bluetooth/mobile connection (if applicable), correct date and time, sound volume -CGM settings(if integrated system): CGM graft views and trend arrows, alerts and alarms, Start new sensor ??? High Alert: 250 mg/dL ??? Low Alert: 70 mg/dL ??? Insulin delivery settings Program insulin to carb ratio, correction factor, target blood glucose, suspend or resume insulin delivery, bolus limit and basal limit settings Instructed patient to only use room temperature insulin, how to load cartridge or fill pod, with insulin. Fill tubing and cannula (if applicable) Inserting infusion set or starting pod Troubleshooting after starting new pod or inserting new insulin set: Occlusion, adhesive tape sensitivity, redness Check BG 2 hours after site change Safety information: Importance of a backup plan, for manual injections, proper prescriptions and emergency supplies ketone strips, and rules for testing for ketones Patient was able to insert insulin set today without difficulty. Patient understands the basic concepts of pump therapy, how to give insulin for meals and snacks, how to troubleshoot for hyper and hypoglycemia. Setting verified by [facility] Basal rate(s) (units/hour) : 12 AM? to 12 AM? 2 units / hr Bolus setting Insulin Carbohydrate Ratio (s) 12 AM to 12 AM? 1:4 Correction Factor / Sensitivity Factor 12 AM to 12 AM? 1:15 Active Insulin Time:? 5 hours Control IQ Target(s): 12 AM to 12 AM? 110 mg/dL Patient will follow up with [facility] as instructed Patient will contact [facility] with questions or concerns, patient given IT number to support in any technical issues related to insulin pump Portions of this note were created using voice recognition software, please excuse any words or phrases that may have been misinterpreted. Coding Level of Care Code Est Pt Level 1 (53716) Diagnoses Uncontrolled diabetes mellitus with hyperglycemia, with long-term current use of insulin E11.65; Z79.4
== END 2025-04-16 09:53 | disposition home or self-care (01) ==
LOC: HO.ENCR 07:54
PROVIDERS: PCP Physician Assistant; Visit Provider Registered Nurse Diabetes Educator
DX: E11.65 Type 2 diabetes mellitus with hyperglycemia (principal); Z79.4 Long term (current) use of insulin

== ENCOUNTER → 2025-04-16 07:53 | Outpatient (BNVA) | payer OTHER, SELFPAY | PROVIDERS: PCP Physician Assistant; Visit Provider Registered Nurse Diabetes Educator | DX: E11.65 Type 2 diabetes mellitus with hyperglycemia (principal); Z79.4 Long term (current) use of insulin; Z96.41 Presence of insulin pump (external) (internal); Z46.81 Encounter for fitting and adjustment of insulin pump | CPT/HCPCS: 99211 ==

== ENCOUNTER 2025-04-24 06:59 | Outpatient (AMB) | payer OTHER, SELFPAY ==
--- NOTE | 2025-04-24 07:02 | A.OFFVIS_ITS ---
Intake Intake Visit Reasons: 60 min Ammunition Specialist Required: No Accompanied by: Self / Same As Patient Allergies azithromycin [From Zithromax] Allergy (Unknown, Verified 12/19/24 09:00) Unknown cefaclor [From Ceclor] Allergy (Unknown, Verified 12/19/24 09:00) Rash cefprozil [From Cefzil] Allergy (Unknown, Verified 12/19/24 09:00) Hives enviormental Allergy (Unknown, Uncoded 12/19/24 09:00) Unknown HPI Comprehensive Diabetes Asmnt Most Recent Diabetes Results: 2 No Data to Display [facility] Medical History (Updated 12/19/24 @ 11:50 by Valeria Elena NP) Hypertension Uncontrolled diabetes mellitus with hyperglycemia, with long-term current use of insulin Surgical History Hx of wisdom tooth extraction Hx of tonsillectomy Family History Mother No problems noted. Father Unknown family medical history Other Adopted Social History Alcohol intake: current Alcohol intake frequency: does not drink Patient Tobacco Use Status: Never used Tobacco Assessment & Plan Assessment & Plan (1) Uncontrolled diabetes mellitus with hyperglycemia, with long-term current use of insulin: Code(s): E11.65 - Type 2 diabetes mellitus with hyperglycemia; Z79.4 - guest experience specialist (current) use of insulin Plan: Patient presents for pump training for T- slim pump and Libre2+ CGM training today. Patient will be using Humalog U 200 in T slim insulin pump The following topics were reviewed today: -extended bolus feature -Sleep Schedule ??? High Alert: 250 mg/dL ??? Low Alert: 70 mg/dL Patient has successfully transitioned from Dexcom G7 to Jesi 2+ sensor with T slim insulin pump Reviewed patient's glucose data, patient is having postprandial hyperglycemia, adjusted insulin to carb ratio at today's visit Set sleep schedule, we reviewed with patient when to use extended bolus feature Patient reports occasional interruption in connectivity since transitioning to Jesi 2+ sensor. Overall patient reports satisfaction with insulin pump. Denies difficulty changing infusion sets. Patient given written off pump insulin plan Instructed patient to only use room temperature insulin, how to load cartridge or fill pod, with insulin. Fill tubing and cannula (if applicable) Troubleshooting after starting new pod or inserting new insulin set: Occlusion, adhesive tape sensitivity, redness Check BG 2 hours after site change Safety information: Importance of a backup plan, for manual injections, proper prescriptions and emergency supplies ketone strips, and rules for testing for ketones Patient was able to insert insulin set today without difficulty. Patient understands the basic concepts of pump therapy, how to give insulin for meals and snacks, how to troubleshoot for hyper and hypoglycemia. Setting verified by [facility] Basal rate(s) (units/hour) : 12 AM? to 12 AM? 2 units / hr Bolus setting Insulin Carbohydrate Ratio (s) 12 AM to 12 AM? 1:4 New 12 AM to 12 AM? 1:3.5 Correction Factor / Sensitivity Factor 12 AM to 12 AM? 1:15 Active Insulin Time:? 5 hours Control IQ Target(s): 12 AM to 12 AM? 110 mg/dL Patient will follow up with [facility] as instructed Patient will contact [facility] with questions or concerns, patient given IT number to support in any technical issues related to insulin pump Patient Instructions: Overdue for A1c please make appointment with provider Follow-up with tobacco prevention health educator in 3 months Coding Level of Care Code Est Pt Level 1 (86669) Diagnoses Uncontrolled diabetes mellitus with hyperglycemia, with long-term current use of insulin E11.65; Z79.4
== END 2025-04-24 07:21 | disposition home or self-care (01) ==
LOC: HO.ENCR 06:59
PROVIDERS: PCP Physician Assistant; Visit Provider Registered Nurse Diabetes Educator
DX: E11.65 Type 2 diabetes mellitus with hyperglycemia (principal); Z79.4 Long term (current) use of insulin

== ENCOUNTER → 2025-04-24 06:59 | Outpatient (BNVA) | payer OTHER, SELFPAY | PROVIDERS: PCP Physician Assistant; Visit Provider Registered Nurse Diabetes Educator | DX: E11.65 Type 2 diabetes mellitus with hyperglycemia (principal); Z79.4 Long term (current) use of insulin | CPT/HCPCS: 99211 ==

== ENCOUNTER 2025-05-01 07:54 | Outpatient (AMB) | payer OTHER, SELFPAY ==
--- OUTSIDE RECORDS SUMMARY | 2025-05-01 07:59 | XMS_ITS | Encounter Summary ---
Author Organization [facility] Address [address] [place] [id number] Phone Care Team Providers Care Trust Mail Clerk Name Role Phone Rafat Ward MD Primary Care Provider [phone] Encounter Details Date Type Department Care Team (Late st Contact Info) Description 07/28/2011 Conversion Encounter [facility] - [place] [address] [place] [phone] Social History Tobacco Use Types Packs/Day Years Used Date Smoking Tobacco: Never Assessed Sex and Gender Information Value Date Recorded Sex Assigned at Not on file Legal Sex Male 6:12 PM EDT Gender Identity Not on file Sexual Orientation Not on file documented as of this encounter Plan of Treatment Not on file documented as of this encounter Visit Diagnoses Not on filedocumented in this encounter Care Teams Trust Mail Clerk Relationship Specialty Start Date End Date Rafat Ward MD [address] [place] [address] PCP - General 03/16/18 documented as of this encounter
--- NOTE | 2025-05-01 08:08 | MHC.OFFVIS ---
Vital Signs 05/01/25 08:09 Height 5 ft 8 in Weight 285 lb 15.033 oz BMI 43.5 BP 140/86 H Blood Pressure Location Lt brachial Position Sitting Pulse 102 H Pulse Source Pulse Oximeter Pulse Oximetry (%) 96 Oxygen Delivery Method Room Air Intake Visit Reasons: T2DM Intake Note: Patient presents today for a follow-up on Type 2 Diabetes Mellitus: Last Diabetic eye exam was on: 06/2024 Last Podiatry exam was on: Patient does not see a Cod Clerk Most recent HbA1c: 9.4% Random Glucose- 197 mg/dL Molded Candles Wicker Required: No Accompanied by: Self / Same As Patient Allergies azithromycin (From Zithromax) Allergy (Unknown, Verified 05/01/25 08:14) Unknown cefaclor (From Ceclor) Allergy (Unknown, Verified 05/01/25 08:14) Rash cefprozil (From Cefzil) Allergy (Unknown, Verified 05/01/25 08:14) Hives enviormental Allergy (Unknown, Uncoded 05/01/25 08:14) Unknown Medication List - Last Reconciled 05/01/25 by Valeria Elena NP blood-glucose sensor (Zigswitchyle Mauricio 2 Plus Sensor device) continuous every 15 days fenofibrate nanocrystallized 145 mg PO DAILY Humalog KwikPen Insulin (insulin lispro) up to units 480 units via pump per day subcutaneously use as directed; 30 days MDD 480 NS hydrochlorothiazide 12.5 mg PO DAILY 30 days losartan 50 mg PO DAILY pen needle, diabetic (BD Sandra 2nd Gen Pen Needle) As directed injects 1 X/day Toujeo Max U-300 SoloStar (insulin glargine U-300 conc) 64 units (0.2133 mL) subcut DAILY 30 days NS HPI Comments Details: 29 YO M who is seen in f/u for T2DM. Patient had episode of pancreatitis due to elevated triglycerides. Hemoglobin A1c 05/01/2025 9.4% (this reflects only 2 weeks of pump therapy) 12/19/2024 8.7%, 08/15/2024 10.1 down from 12.5. C-peptide 1.5 2021 GLP 1 agonist contraindicated due to pancreatitis Initially diagnosed with T2DM in 2019 . Was initially started on treatment with metformin . Backup insulin pump failure plan Toujeo 60 units Humalog 1:4 carb ratio correction 1:14 using phone elsa (generally follows car ratio/correction factor) 81-150 10 units 151-200 15 units 201-250 20 units over 250 20 units Freestyle mauricio sensor 3 average glucose: 172 14 day continuous glucose sensor report reviewed Glucose Management indicator 7.4 % Time CGM active [ ] % TIme in ranges: 11 % very high (above 250) 28 % high (181-250) 61 % in range (70-180] 1 % low (69-55) 0 % very low (below 54) Interpretation of CGMS overnight lows resolved, he is having postprandial elevations he is entering carbs with the time of the meal or 10-15 minutes afterwards Average daily carbs 87 Total daily dose of insulin he is going through a pen every day and a half Basal insulin 45% bolus 55% Reports rare low sugars . Family history of T2DM in pt adopted . Denies retinopathy: Has eyes checked yearly, last eye exam 09/2024 Denies neuropathy, no numbness, tingling, pain or cramping in the lower extremities, does not see podiatry. No nephropathy,on [facility] last labs in chart 2021 EGFR 135 no microalbumin Has high trig, on fenofibrate Denies CAD. Has had diabetes educationm. Recently saw educator 2023, considering going on a insulin pump T-Slim pump [facility] Medical History (Updated 05/01/25 @ 08:59 by Valeria Elena NP) Pancreatitis High triglycerides Hypertension Uncontrolled diabetes mellitus with hyperglycemia, with long-term current use of insulin Surgical History Hx of wisdom tooth extraction Hx of tonsillectomy Family History Mother No problems noted. Father Unknown family medical history Other Adopted Social History Alcohol intake: current Alcohol intake frequency: does not drink Patient Tobacco Use Status: Never used Tobacco Physical Exam Vital Signs: Last Vital Signs Pulse 102 H 05/01/25 08:09 BP 140/86 H 05/01/25 08:09 Pulse Ox 96 05/01/25 08:09 Oxygen Delivery Method Room Air 05/01/25 08:09 BMI result Body Mass Index 43.5 Const Other: Absence of Cushingoid features. Absence of acromegalic features. Neck exam reveals nl size thyroid about 15 gms. No thyroid nodules palpable. Heart S1 S2, Reg R/R. No M/R G. Skin exam reveals absence of vitiligo or acanthosis nigricans. No edema Visual exam of foot performed. No ulcerations or open lesions. No inter digit maceration or fissuring. No onychomycosis, no callouses. Sensation intact to monofilament exam. Vibratory sensation is normal with 128 Hz tuning fork. Pulses positive Office Procedures Glucose Monitoring Details Details: see [place] human [place] [id number] - Glucose monitoring, continuous-physician I&R Procedure code (CPT) selection complete Results AMB Hemoglobin A1c AMB Hemoglobin A1c 9.4 % Last Edit by BECKI Martin on 05/01/25 08:27 Assessment & Plan Assessment & Plan (1) Uncontrolled diabetes mellitus with hyperglycemia, with long-term current use of insulin: Code(s): E11.65 - Type 2 diabetes mellitus with hyperglycemia; Z79.4 - longterm (current) use of insulin Category: Medical Plan: 21-year-old type 2 diabetic with a history of pancreatitis attributed to elevated triglycerides newly on an insulin pump. Average is 172. He is entering carbs of the time with the meal are 10-15 minutes afterwards in his having some substantial rises. He was asked as much as possible to pre plan into enters carbs 20 minutes before the meals so that he is not chasing his sugars once they go up. We will contact pharmacy to get an insurance over ride as he is not getting enough insulin he is using U 200 was just only available in a pen which she has been taught how to fill his reservoir by using the pen. Hypertension losartan increase to 100 mg per day. Patient advised who is overdue to check his labs as he was started on hydrochlorothiazide earlier in the year. The patient had an opportunity to ask questions regarding treatment plan. The patient expressed understanding and agreement with the above treatment plan. The patient is aware they should contact our office by phone for worsening glucose readings or for any low blood sugars which may warrant a change in diabetes medication. Compliance is encouraged with medications and any followup testing/consults which may have been ordered. (2) High triglycerides: Comment: h/o pancreatitis was asked to have blood work done GLP 1 agonist contraindicated Code(s): E78.1 - Pure hyperglyceridemia Category: Medical Plan: as above Orders: Orders AMB Hemoglobin A1c Today E11.65 - Type 2 diabetes mellitus with hyperglycemia, Z13.9 - Encounter for screening, unspecified, Z79.4 - longterm (current) use of insulin Lipid Panel Today E78.1 - Pure hyperglyceridemia AMB Glucose Monitoring Today E11.65 - Type 2 diabetes mellitus with hyperglycemia, Z79.4 - terminal worker (current) use of insulin Medications: New losartan 100 mg PO DAILY 30 tabs 6RF 30 days NS Baqsimi 3 mg/actuation (glucagon) 3 mg intranasal ONCE PRN 2 ea 3RF unresponsive hypoglycemia 30 days MDD 6mg NS Changed From Humalog KwikPen Insulin (insulin lispro) up to 120 units via pump per day subcutaneously use as directed; 30 days 50 mL 5RF for use in insulin pump MDD 140 units NS To Humalog KwikPen Insulin (insulin lispro) up to units 480 units via pump per day subcutaneously use as directed; 72 mL 5RF for use in insulin pump 30 days MDD 480 NS Discontinued blood-glucose sensor (FreeStyle Mauricio 3 Sensor device) Discontinued Reason: Doctor's Order As directed 2 ea 6RF Coding Level of Care Code Est Pt Level 4 (62257) Complex EM visit Add On G2211 Diagnoses Uncontrolled diabetes mellitus with hyperglycemia, with long-term current use of insulin E11.65; Z79.4 High triglycerides E78.1 CPT Codes Details - CPT: 57097 - Glucose monitoring, continuous-physician I&R ([id number]) Time Spent (min) 50 Comment Time spent reviewing labs/provider notes, face to face, chart doc
[2025-05-01 08:09] VITALS: BP 140/86; PULSE 102; O2SAT 96; BMI 43.5
[2025-05-01 08:22] LABS: Glucose, Whole Blood 197 mg/dL (60-115)
== END 2025-05-01 08:37 | disposition home or self-care (01) ==
LOC: HO.ENCR 07:54
PROVIDERS: PCP Physician Assistant; Visit Provider Nurse Practitioner Adult Health
DX: E11.65 Type 2 diabetes mellitus with hyperglycemia (principal); Z79.4 Long term (current) use of insulin; Z13.9 Encounter for screening, unspecified; E78.1 Pure hyperglyceridemia
CPT/HCPCS: 95251; 99214

== ENCOUNTER → 2025-05-01 07:54 | Outpatient (BNVA) | payer OTHER, SELFPAY | PROVIDERS: PCP Physician Assistant; Visit Provider Nurse Practitioner Adult Health | DX: E11.65 Type 2 diabetes mellitus with hyperglycemia (principal); Z79.4 Long term (current) use of insulin | CPT/HCPCS: 82947; 83036 ==

== ENCOUNTER 2025-07-10 08:35 | Outpatient (AMB) | payer OTHER, SELFPAY ==
--- NOTE | 2025-07-10 08:42 | MHC.OFFVIS ---
Vital Signs 07/10/25 08:45 Height 5 ft 8 in Weight 292 lb 8.854 oz BMI 44.5 BP 132/72 Blood Pressure Location Lt brachial Position Sitting Pulse 97 Pulse Source Pulse Oximeter Pulse Oximetry (%) 96 Oxygen Delivery Method Room Air Intake Visit Reasons: Type II diabetes Intake Note: Patient present today to follow up on Type 2 Diabetes Mellitus. Last Diabetic Eye exam: Has an appointment next week. Last Podiatry Visit: Does not see a Fiberline Supervisor Random Glucose: 164 mg/dl Hgb A1C: 9.4% 05/01/2025 [facility] Display Builder Required: No Accompanied by: Self / Same As Patient Allergies azithromycin (From Zithromax) Allergy (Unknown, Verified 07/10/25 08:45) Unknown cefaclor (From Ceclor) Allergy (Unknown, Verified 07/10/25 08:45) Rash cefprozil (From Cefzil) Allergy (Unknown, Verified 07/10/25 08:45) Hives enviormental Allergy (Unknown, Uncoded 07/10/25 08:45) Unknown Medication List - Last Reconciled 07/10/25 by Demond Maharaj MD Baqsimi 3 mg/actuation (glucagon) 3 mg intranasal ONCE PRN 30 days MDD 6mg NS blood-glucose sensor (FreeStyle Jesi 2 Plus Sensor device) continuous every 15 days fenofibrate nanocrystallized 145 mg PO DAILY Humalog KwikPen Insulin (insulin lispro) up to units 480 units via pump per day subcutaneously use as directed; 30 days MDD 480 NS hydrochlorothiazide 12.5 mg PO DAILY 30 days losartan 100 mg PO DAILY 30 days pen needle, diabetic (BD Sandra 2nd Gen Pen Needle) As directed injects 1 X/day Toujeo Max U-300 SoloStar (insulin glargine U-300 conc) 64 units (0.2133 mL) subcut DAILY 30 days NS HPI Comments Details: 30 YO M who is seen in f/u for T2DM. Patient had episode of pancreatitis due to elevated triglycerides. Pt last shows Valeria Malloy NP on 05/01 GLP 1 agonist contraindicated due to pancreatitis Initially diagnosed with T2DM in 2019 . Was initially started on treatment with metformin . Backup insulin pump failure plan Toujeo 64 units Humalog 1:4 carb ratio correction 1:14 using phone elsa (generally follows car ratio/correction factor) 81-150 10 units 151-200 15 units 201-250 20 units over 250 20 units On tandem T-slim pump with control IQ with settings basal rate 2 units/hour with insulin: Carbohydrate of 1:3 and sensitivity of 15 Control IQ was used 86% of the time. Total insulin per day 79.6 with 56% basal and 44 % bolus Freestyle jesi sensor 2 plus average glucose: 14 day continuous glucose sensor report reviewed. Was unable to download Jesi data Time CGM active [ ] % TIme in ranges: % very high (above 250) % high (181-250) 64% in range (70-180] % low (69-55) 0 % very low (below 54) Interpretation of CGMS overnight lows resolved, he is having postprandial elevations he is entering carbs with the time of the meal or 10-15 minutes afterwards Average daily carbs 87 Total daily dose of insulin he is going through a pen every day and a half Basal insulin 45% bolus 55% Reports rare low sugars . Family history of T2DM in pt adopted . Denies retinopathy: Has eyes checked yearly, next eye exam in 2 wks Denies neuropathy, no numbness, tingling, pain or cramping in the lower extremities, does not see podiatry. No nephropathy,on ARB last labs in chart 2021 EGFR 135 no microalbumin Has high trig, on fenofibrate Denies CAD. Has had diabetes educationm. Recently saw educator 2023, considering going on a insulin pump T-Slim pump [facility] Medical History (Updated 05/01/25 @ 08:59 by Valeria Elena NP) Pancreatitis High triglycerides Hypertension Uncontrolled diabetes mellitus with hyperglycemia, with long-term current use of insulin Surgical History Hx of wisdom tooth extraction Hx of tonsillectomy Family History Mother No problems noted. Father Unknown family medical history Other Adopted Social History Alcohol intake: current Alcohol intake frequency: does not drink Patient Tobacco Use Status: Never used Tobacco Physical Exam Vital Signs: Last Vital Signs Pulse 97 07/10/25 08:45 BP 132/72 07/10/25 08:45 Pulse Ox 96 07/10/25 08:45 Oxygen Delivery Method Room Air 07/10/25 08:45 BMI result Body Mass Index 44.5 Const Other: Absence of Cushingoid features. Absence of acromegalic features. Neck exam reveals nl size thyroid about 15 gms. No thyroid nodules palpable. Heart S1 S2, Reg R/R. No M/R G. Skin exam reveals absence of vitiligo or acanthosis nigricans. No edema Visual exam of foot performed. No ulcerations or open lesions. No inter digit maceration or fissuring. No onychomycosis, no callouses. Sensation intact to monofilament exam. Vibratory sensation is normal with 128 Hz tuning fork. Pulses positive Results Reviewed Results Reviewed: Laboratory Last Values Glucose (Clinic) 164 mg/dL (60-115) H 07/10/25 08:49 Assessment & Plan Assessment & Plan (1) Uncontrolled diabetes mellitus with hyperglycemia, with long-term current use of insulin: Code(s): E11.65 - Type 2 diabetes mellitus with hyperglycemia; Z79.4 - correction (current) use of insulin Category: Medical Plan: This 30 -year-old white male with a history of pancreatitis to elevated triglycerides and diabetes 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 He is currently being treated with Tandem T-Slim pump with improving glycemic control and no known microvascular or macrovascular complications. Plan is increase should follow-up with the school vocational educator to access Jesi View . We will also check lipid profile and microalbumin to creatinine ratio told patient goes for these labs. Couldn't make any adjustments to pump because of lack of data Orders: Orders Thyroid Stimulating Hormone Today E11.65 - Type 2 diabetes mellitus with hyperglycemia, Z79.4 - terminal gauger supervisor (current) use of insulin Microalbumin, Random (w Creat) Today E11.65 - Type 2 diabetes mellitus with hyperglycemia, Z79.4 - correction (current) use of insulin Basic Metabolic Panel Today E11.65 - Type 2 diabetes mellitus with hyperglycemia, Z79.4 - terminal gauger supervisor (current) use of insulin Free T4 (Free Thyroxine) Today E11.65 - Type 2 diabetes mellitus with hyperglycemia, Z79.4 - terminal gauger supervisor (current) use of insulin Lipid Panel Today E78.1 - Pure hyperglyceridemia Coding Level of Care Code Est Pt Level 4 (97593) Complex EM visit Add On G2211 Diagnoses Uncontrolled diabetes mellitus with hyperglycemia, with long-term current use of insulin E11.65; Z79.4
[2025-07-10 08:45] VITALS: BP 132/72; PULSE 97; O2SAT 96; BMI 44.5
[2025-07-10 08:54] LABS: Glucose, Whole Blood 164 mg/dL (60-115)
--- OUTSIDE RECORDS SUMMARY | 2025-07-10 09:14 | XMS_ITS | Encounter Summary ---
Author Organization [facility] Address [address] [place] [phone] Phone Care Team Providers Care Key Account Manager Name Role Phone Rafat Ward MD Primary Care Provider [phone] Encounter Details Date Type Department Care Team (Late st Contact Info) Description 07/28/2011 Conversion Encounter [facility] - [place] [address] [place] [id number] Social History Tobacco Use Types Packs/Day Years [...] on filedocumented in this encounter Care Teams Key Account Manager Relationship Specialty Start Date End Date Rafat Ward MD [address] [place] [address] PCP - General 03/16/18 documented as of this encounter
--- OUTSIDE RECORDS SUMMARY | 2025-07-10 09:14 | XMS_ITS | Clinical Summary ---
Author Organization [facility] Address [address] [place] [address] Phone Care Team Providers Care Bag Machine Operator Helper Name Role Phone Rafat Ward MD Primary Care Provider [phone] Immunizations Immunization Administration Dates Next Due DTaP 5 05/21/2001, 8,10/24/1997,08/15,06/20/1997 H1N1 08/28/2009 HPV Vaccine 9 Valent 04/03/2016,09/10/2015 HPV, Quadrivalent 03/22/2015 Hep A, ped/adol 03/22/2015,06/21/2014 Hep B, ped/adol 01/31/1998,08/23/1997,06/27/1997 Hib (PRP-T) 05/14/1998, 7,08/23/1997,07/07 IPV 05/21/2001, 8,08/15/1997,06/20 Influenza, injectable, quadrivalent 10/08/2016 Influenza, injectable, quadr ivalent, preservative free 09/10/2015 Influenza, injectable, trivalent 09/26/2013,07/09 Influenza, injectable, triva lent, preservative free 08/04/2011,09/09/2010,08/21/2008,09/14,09/02/2006,09/28/2005,07/28/2004 ,09/11/2003,09/13/2002,10/24/2001 MMR 05/21/2001,10/24/1997 Meningococcal Conj (Menactra) MCV4P 06/21/2014,1 PPD Test 03/12/1997 Pneumococcal Polysaccharide 08/28/2009 Tdap 11/03/2007 Varicella 02/07/2009,05/18/1998 Social History Tobacco Use Types Packs/Day Years Used Date Smoking Tobacco: Never Comments:Never Smoker Sex and Gender Information Value Date Recorded Sex Assigned at Not on file Legal Sex Male 6:12 PM EDT Gender Identity Not on file Sexual Orientation Not on file Last Filed Vital Signs Vital Sign Reading Time Taken Comments Blood Pressure - - Pulse 98 04/08/2017 1:27 PM EDT Temperature 36.8 C (98.2 F) 08/26/2012 11:39 AM EDT Respiratory Rate - - Oxygen Saturation 99% 10/08/2016 3:43 PM EST Inhaled Oxygen Concentration - - Weight 118 kg (260 lb 12.8 oz) 04/08/2017 1:27 P M EDT Height 172.7 cm (5' 8 ) 04/08/2017 1:27 PM EDT Body Mass Index 39.65 04/08/2017 1:27 PM EDT Plan of Treatment Health Maintenance Due Date Last Done Comments DTaP,Tdap,and Td Vaccines (7 - Td or Tdap) 11/03/2017 11/03/2007, 05/21/2001, 05/14/1998, Additional history exists Influenza Vaccines (#1) 2025 10/08/20 16, 09/10/2015, 09/26/2013, Additional history exists COVID-19 Vaccine ( season) 2025 Hepatitis B Vaccines Completed 01/31/1998, 08/23/1997, 06/27/1997 HIB Vaccines Completed 05/14/1998, 10/08, 08/23/1997, Additional history exists IPV Vaccines Completed 05/21/2001, 05/08, 08/15/1997, Additional history exists MMR Vaccines Completed 05/21/2001, 10/24/1997 Varicella Vaccines Completed 02/07/2009, 05/18/1998 Pneumococcal Vaccine Aged Out 08/28/2009 No long er eligible based on patient's age to complete this topic Meningococcal Vaccine Completed 06/21/2014, 009 Hepatitis A Vaccines Completed 03/22/2015, 06/21/20 14 HPV Vaccines Completed 04/03/2016, 11/0 01/2015, 03/22/2015 Men B Vaccine Aged Out No longer lyndsey goetz based on patient's age to complete this topic Care Teams Bag Machine Operator Helper Relationship Specialty Start Date End Date Rafat Ward MD [address] [facility] [place] [address] PCP - General 03/16/18
== END 2025-07-10 09:13 | disposition home or self-care (01) ==
LOC: HO.ENCR 08:35
PROVIDERS: PCP Physician Assistant; Visit Provider Internal Medicine Endocrinology, Diabetes & Metabolism
DX: E11.65 Type 2 diabetes mellitus with hyperglycemia (principal); Z79.4 Long term (current) use of insulin
CPT/HCPCS: 99214; G2211

== ENCOUNTER → 2025-07-10 08:35 | Outpatient (BNVA) | payer OTHER, SELFPAY | PROVIDERS: PCP Physician Assistant; Visit Provider Internal Medicine Endocrinology, Diabetes & Metabolism | DX: E11.65 Type 2 diabetes mellitus with hyperglycemia (principal) | CPT/HCPCS: 82947 ==

== ENCOUNTER 2025-07-24 07:58 | Outpatient (AMB) | payer OTHER, SELFPAY ==
--- NOTE | 2025-07-24 08:29 | MHC.AMDMED ---
Intake Intake Visit Reasons: 30 MIN Print Project Manager Required: No Accompanied by: Self / Same As Patient Allergies azithromycin (From Zithromax) Allergy (Unknown, Verified 07/10/25 08:45) Unknown cefaclor (From Ceclor) Allergy (Unknown, Verified 07/10/25 08:45) Rash cefprozil (From Cefzil) Allergy (Unknown, Verified 07/10/25 08:45) Hives enviormental Allergy (Unknown, Uncoded 07/10/25 08:45) Unknown [facility] Medical History (Updated 05/01/25 @ 08:59 by Valeria Elena NP) Pancreatitis High triglycerides Hypertension Uncontrolled diabetes mellitus with hyperglycemia, with long-term current use of insulin Surgical History Hx of wisdom tooth extraction Hx of tonsillectomy Family History Mother No problems noted. Father Unknown family medical history Other Adopted Social History Alcohol intake: current Alcohol intake frequency: does not drink Patient Tobacco Use Status: Never used Tobacco Assessment & Plan Assessment & Plan (1) Uncontrolled diabetes mellitus with hyperglycemia, with long-term current use of insulin: Code(s): E11.65 - Type 2 diabetes mellitus with hyperglycemia; Z79.4 - intermediate project manager (current) use of insulin Plan: Patient presents for pump training for T- slim pump and Libre2+ CGM training today. Patient will be using Humalog U 200 in T slim insulin pump The following topics were reviewed today: -Importance of entering carbs at meals -Use control IQ for correction -Connectivity between pump and Jesi 2+ sensor Pt is not entering carb for all meals. Instead he is overriding pump recomendation for correcting and increasing corrections. This has caused episodes of hypos. Discussed with Pt the importance of entering carbohydrates. We will need to see data after he starts taking recommended bolus for meals and corrections Instructed Pt to keep pump face turned to the outside, and wear pump and sensor on the same side of the body for connectivity. Instructed patient to only use room temperature insulin, how to load cartridge or fill pod, with insulin. Fill tubing and cannula (if applicable) Troubleshooting after starting new pod or inserting new insulin set: Occlusion, adhesive tape sensitivity, redness Check BG 2 hours after site change Safety information: Importance of a backup plan, for manual injections, proper prescriptions and emergency supplies ketone strips, and rules for testing for ketones Patient was able to insert insulin set today without difficulty. Patient understands the basic concepts of pump therapy, how to give insulin for meals and snacks, how to troubleshoot for hyper and hypoglycemia. Setting verified by [facility]. No changes made to pump settings at today's visit Basal rate(s) (units/hour) : 12 AM? to 12 AM? 2 units / hr Bolus setting Insulin Carbohydrate Ratio (s) 12 AM to 12 AM? 1:3.5 Correction Factor / Sensitivity Factor 12 AM to 12 AM? 1:15 Active Insulin Time:? 5 hours Control IQ Target(s): 12 AM to 12 AM? 110 mg/dL Patient will follow up with [facility] as instructed Patient will contact [facility] with questions or concerns, patient given IT number to support in any technical issues related to insulin pump Patient Instructions: Overdue for A1c please make appointment with provider Follow-up with clinical educator in 3 months Orders: Orders AMB Hemoglobin A1c Today E11.65 - Type 2 diabetes mellitus with hyperglycemia, Z79.4 - snf (current) use of insulin Coding Level of Care Code Est Pt Level 1 (46230) Diagnoses Uncontrolled diabetes mellitus with hyperglycemia, with long-term current use of insulin E11.65; Z79.4
== END 2025-07-24 08:36 | disposition home or self-care (01) ==
LOC: HO.ENCR 07:59
PROVIDERS: PCP Physician Assistant; Visit Provider Registered Nurse Diabetes Educator
DX: E11.65 Type 2 diabetes mellitus with hyperglycemia (principal); Z79.4 Long term (current) use of insulin
CPT/HCPCS: 99499

== ENCOUNTER 2025-09-04 08:36 | Outpatient (AMB) | payer OTHER, SELFPAY ==
--- NOTE | 2025-09-04 09:03 | A.OFFVIS_ITS ---
Intake Intake Visit Reasons: 30 min Allergies azithromycin (From Zithromax) Allergy (Unknown, Verified 07/10/25 08:45) Unknown cefaclor (From Ceclor) Allergy (Unknown, Verified 07/10/25 08:45) Rash cefprozil (From Cefzil) Allergy (Unknown, Verified 07/10/25 08:45) Hives enviormental Allergy (Unknown, Uncoded 07/10/25 08:45) Unknown [facility] Medical History (Updated 05/01/25 @ 08:59 by Valeria Elena NP) Pancreatitis High triglycerides Hypertension Uncontrolled diabetes mellitus with hyperglycemia, with long-term current use of insulin Surgical History Hx of wisdom tooth extraction Hx of tonsillectomy Family History Mother No problems noted. Father Unknown family medical history Other Adopted Social History Alcohol intake: current Alcohol intake frequency: does not drink Patient Tobacco Use Status: Never used Tobacco Assessment & Plan Assessment & Plan (1) Uncontrolled diabetes mellitus with hyperglycemia, with long-term current use of insulin: Code(s): E11.65 - Type 2 diabetes mellitus with hyperglycemia; Z79.4 - terminal superintendent (current) use of insulin Plan: Patient presents for pump training for T- slim pump and Libre2+ CGM training today. Patient will be using Humalog U 200 in T slim insulin pump The following topics were reviewed today: -Importance of entering carbs at meals -Use control IQ for correction Pt's last A1c in April 2025 was 9.2% Pt will be due for next A1c at visit with Dr. Maharaj in October Pt has been entering carbohydrates in pump more frequently. He is also doing more correction. Pt trends up slowly throughout the day increase I:CHO after 12PM Instructed patient to only use room temperature insulin, how to load cartridge or fill pod, with insulin. Fill tubing and cannula (if applicable) Troubleshooting after starting new pod or inserting new insulin set: Occlusion, adhesive tape sensitivity, redness Check BG 2 hours after site change Safety information: Importance of a backup plan, for manual injections, proper prescriptions and emergency supplies ketone strips, and rules for testing for ketones Patient was able to insert insulin set today without difficulty. Patient understands the basic concepts of pump therapy, how to give insulin for meals and snacks, how to troubleshoot for hyper and hypoglycemia. Setting verified by [facility]. See changes made to pump settings at today's visit Basal rate(s) (units/hour) : 12 AM? to 12 AM? 2 units / hr Bolus setting Insulin Carbohydrate Ratio (s) 12 AM to 12 PM? 1:3 12 PM to 12 12 AM 1:2.5 Correction Factor / Sensitivity Factor 12 AM to 12 AM? 1:15 Active Insulin Time:? 5 hours Control IQ Target(s): 12 AM to 12 AM? 110 mg/dL Patient will follow up with [facility] as instructed Patient will contact [facility] with questions or concerns, patient given IT number to support in any technical issues related to insulin pump Patient Instructions: Overdue for A1c please make appointment with provider Follow-up with adaptive physical educator in 3 months Coding Level of Care Code Est Pt Level 1 (10496) Diagnoses Uncontrolled diabetes mellitus with hyperglycemia, with long-term current use of insulin E11.65; Z79.4
--- OUTSIDE RECORDS SUMMARY | 2025-09-04 09:21 | XMS_ITS | Encounter Summary ---
Author Organization [facility] Address [address] [place] [id number] Phone Care Team Providers Care [place] Stayer Machine Operator Name Role Phone Rafat Ward MD Primary Care Provider [phone] Encounter Details Date Type Department Care Team (Late st Contact Info) Description 07/28/2011 Conversion Encounter [facility] [place] [address] [place] [id number] Social History Tobacco Use Types Packs/Day Years [...] on filedocumented in this encounter Care Teams [place] Stayer Machine Operator Relationship Specialty Start Date End Date Rafat Ward MD [address] [place] [address] PCP - General 03/16/18 documented as of this encounter
--- OUTSIDE RECORDS SUMMARY | 2025-09-04 09:21 | XMS_ITS | Clinical Summary ---
Author Organization [facility] Address [address] [place] [phone] Phone Care Team Providers Care Aviation Maintenance Technician Name Role Phone Rafat Ward MD Primary Care Provider [phone] Immunizations Immunization Administration Dates Next Due DTaP [...] age to complete this topic Care Teams Aviation Maintenance Technician Relationship Specialty Start Date End Date Rafat Ward MD [address] [facility] [place] [id number] PCP - General 03/16/18
== END 2025-09-04 09:05 | disposition home or self-care (01) ==
LOC: HO.ENCR 08:36
PROVIDERS: PCP Physician Assistant; Visit Provider Registered Nurse Diabetes Educator
DX: E11.65 Type 2 diabetes mellitus with hyperglycemia (principal); Z79.4 Long term (current) use of insulin
CPT/HCPCS: 99499

== ENCOUNTER 2025-10-22 08:27 | Outpatient (AMB) | payer OTHER, SELFPAY ==
--- NOTE | 2025-10-22 08:29 | A.OFFVIS_ITS ---
Vital Signs 10/22/25 08:30 Height 5 ft 8 in Weight 299 lb 13.259 oz BMI 45.6 BP 140/88 H Blood Pressure Location Rt brachial Position Sitting Pulse 103 H Pulse Source Pulse Oximeter Pulse Oximetry (%) 95 Oxygen Delivery Method Room Air Intake Visit Reasons: DM Intake Note: Patient presents today for a follow-up on Type 2 Diabetes Mellitus: Last Diabetic eye exam was on: 06/18/2025 Last Podiatry exam was on: Patient does not see a Carpenter'S Assistant Most recent HbA1c: 7.0%, 10/22/2025 Random Glucose- 112 mg/dL, Today Nursing Assistant Required: No Accompanied by: Self / Same As Patient Allergies azithromycin (From Zithromax) Allergy (Unknown, Verified 10/22/25 08:30) Unknown cefaclor (From Ceclor) Allergy (Unknown, Verified 10/22/25 08:30) Rash cefprozil (From Cefzil) Allergy (Unknown, Verified 10/22/25 08:30) Hives enviormental Allergy (Unknown, Uncoded 10/22/25 08:30) Unknown Medication List - Last Reconciled 10/22/25 by Demond Maharaj MD Baqsimi 3 mg/actuation (glucagon) 3 mg intranasal ONCE PRN 30 days MDD 6mg NS blood-glucose sensor (FreeStyle Jesi 2 Plus Sensor device) continuous every 15 days fenofibrate nanocrystallized 145 mg PO DAILY Humalog KwikPen Insulin (insulin lispro) up to units 480 units via pump per day subcutaneously use as directed; 30 days MDD 480 NS hydrochlorothiazide 12.5 mg PO DAILY 30 days losartan 100 mg PO DAILY 30 days pen needle, diabetic (BD Sandra 2nd Gen Pen Needle) As directed injects 1 X/day Toujeo Max U-300 SoloStar (insulin glargine U-300 conc) 64 units (0.2133 mL) subcut DAILY 30 days NS HPI Comments Details: 30 YO M who is seen in f/u for T2DM. Patient had episode of pancreatitis due to elevated triglycerides. GLP 1 agonist contraindicated due to pancreatitis Initially diagnosed with T2DM in 2019 . Was initially started on treatment with metformin . Backup insulin pump failure plan Weiubeth 64 units Humalog 1:4 carb ratio correction 1:14 using phone elsa (generally follows car ratio/correction factor) 81-150 10 units 151-200 15 units 201-250 20 units over 250 20 units On tandem T-slim pump with control IQ with settings basal rate 2 units/hour with insulin: Carbohydrate of 1:3 and sensitivity of 15 Control IQ was used 84% of the time. Total insulin per day 79.29 with 52% basal and 48 % bolus Freestyle jesi sensor 2 plus average glucose: 14 day continuous glucose sensor report reviewed. Was unable to download Jesi data Time CGM active 84 % TIme in ranges: 1.3 % very high (above 250) 18 % high (181-250) 79% in range (70-180] 1.3 % low (69-55) 0 % very low (below 54) Interpretation of CGMS mostly range throughout the day with slight increase after dinner Reports rare low sugars . Family history of T2DM in pt adopted . Denies retinopathy: Has eyes checked yearly, last eye exam 06/18/2025 Denies neuropathy, no numbness, tingling, pain or cramping in the lower extremities, does not see podiatry. No nephropathy,on [facility] last labs in chart 2021 EGFR 135 no microalbumin Has high trig, on fenofibrate Denies CAD. [facility] Medical History Pancreatitis High triglycerides Hypertension Uncontrolled diabetes mellitus with hyperglycemia, with long-term current use of insulin Surgical History Hx of wisdom tooth extraction Hx of tonsillectomy Family History Mother No problems noted. Father Unknown family medical history Other Adopted Social History Alcohol intake: current Alcohol intake frequency: does not drink Patient Tobacco Use Status: Never used Tobacco Physical Exam Vital Signs: Last Vital Signs Pulse 103 H 10/22/25 08:30 BP 140/88 H 10/22/25 08:30 Pulse Ox 95 10/22/25 08:30 Oxygen Delivery Method Room Air 10/22/25 08:30 BMI result Body Mass Index 45.6 Const Other: Absence of Cushingoid features. Absence of acromegalic features. Neck exam reveals nl size thyroid about 15 gms. No thyroid nodules palpable. Heart S1 S2, Reg R/R. No M/R G. Skin exam reveals absence of vitiligo or acanthosis nigricans. No edema Visual exam of foot performed. No ulcerations or open lesions. No inter digit maceration or fissuring. No onychomycosis, no callouses. Sensation intact to monofilament exam. Vibratory sensation is normal with 128 Hz tuning fork. Pu lses positive Results AMB Hemoglobin A1c AMB Hemoglobin A1c 7.0 % Last Edit by BECKI Ramos on 10/22/25 08:45 Results Reviewed Results Reviewed: Laboratory Last Values Glucose (Clinic) 112 mg/dL (60-115) 10/22/25 08:37 Hgb A1c (Clinic) 7.0 % (4.0-6.0) H 10/22/25 08:44 Assessment & Plan Assessment & Plan (1) Uncontrolled diabetes mellitus with hyperglycemia, with long-term current use of insulin: Code(s): E11.65 - Type 2 diabetes mellitus with hyperglycemia; Z79.4 - terminal operations manager (current) use of insulin Category: Medical Plan: This 30 -year-old white male with a history of pancreatitis to elevated triglycerides and diabetes 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 He is currently being treated with Tandem T-Slim pump with improving excellent glycemic control and no known microvascular or macrovascular complications. Plan is continue current regimen . We will also check lipid profile and microalbumin to creatinine ratio told patient goes for these labs. Orders: Orders AMB Hemoglobin A1c Today E11.65 - Type 2 diabetes mellitus with hyperglycemia, Z79.4 - terminal operations manager (current) use of insulin Coding Level of Care Code Est Pt Level 4 (12669) Add On Problem Visit Only Diagnoses Uncontrolled diabetes mellitus with hyperglycemia, with long-term current use of insulin E11.65; Z79.4
[2025-10-22 08:30] VITALS: BP 140/88; PULSE 103; O2SAT 95; BMI 45.6
[2025-10-22 08:41] LABS: Glucose, Whole Blood 112 mg/dL (60-115)
== END 2025-10-22 10:03 | disposition home or self-care (01) ==
LOC: HO.ENCR 08:27
PROVIDERS: PCP Physician Assistant; Visit Provider Internal Medicine Endocrinology, Diabetes & Metabolism
DX: E11.65 Type 2 diabetes mellitus with hyperglycemia (principal); Z79.4 Long term (current) use of insulin
CPT/HCPCS: 99214; G2211

== ENCOUNTER → 2025-10-22 08:27 | Outpatient (BNVA) | payer OTHER, SELFPAY | PROVIDERS: PCP Physician Assistant; Visit Provider Internal Medicine Endocrinology, Diabetes & Metabolism | DX: E11.65 Type 2 diabetes mellitus with hyperglycemia (principal); Z79.4 Long term (current) use of insulin | CPT/HCPCS: 82947; 83036 ==